=== PATIENT | male | born 1995 | race Caucasian/White ===

== ENCOUNTER 2021-07-27 21:35 | Emergency (ER) | payer SELFPAY ==
[~2021-07-27] VITALS: Ht 175.3 cm; Wt 61.4 kg
[2021-07-27] MEDS ORDERED: HYDROcodone/acetaminophen 10/325mg tab PO ONE (22:25)
[2021-07-27] MEDS ORDERED: ondansetron 4mg rapidly disintigrating tab PO ONE (22:25)
[2021-07-27] MEDS ORDERED: IBUP-1984 PO (22:26)
[2021-07-27 23:13] VITALS: BP 134/75
== END 2021-07-27 23:14 | disposition home or self-care (01) ==
LOC: ER 21:37
DX: S93.401A Sprain of unspecified ligament of right ankle, initial encounter (principal); Z88.0 Allergy status to penicillin; Z88.5 Allergy status to narcotic agent; W22.8XXA Striking against or struck by other objects, initial encounter; Y93.89 Activity, other specified; Y92.89 Other specified places as the place of occurrence of the external cause; Y99.8 Other external cause status
CPT/HCPCS: 73610; 99283